=== PATIENT | female | born 1990 | race Hispanic/Latino ===

== ENCOUNTER 2023-01-31 12:11 | Outpatient (CLI) | payer OTHER | END 2023-01-31 12:12 | disposition home or self-care (01) | LOC: BICULT 12:11 | PROVIDERS: ATTEND Family Medicine | DX: O44.42 Low lying placenta NOS or without hemorrhage, second trimester (principal); Z3A.21 21 weeks gestation of pregnancy | CPT/HCPCS: 76805 ==